=== PATIENT | female | born 1965 | race Caucasian/White ===

== ENCOUNTER → 2019-02-19 11:56 | Outpatient (CLI) | payer OTHER, SELFPAY ==
[2019-02-25 12:09] LABS: HPV Reflexed? NOT INDICATED
== END ==
PROVIDERS: Referring Provider Obstetrics & Gynecology; Visit Provider Obstetrics & Gynecology
DX: Z12.4 Encounter for screening for malignant neoplasm of cervix (principal)
CPT/HCPCS: 88175; G0145

== ENCOUNTER → 2024-12-31 | Outpatient (CLI) | payer OTHER, SELFPAY | END | disposition home or self-care (01) | LOC: CT 14:00 | PROVIDERS: Referring Provider Otolaryngology Otolaryngology/Facial Plastic Surgery; Visit Provider Otolaryngology Otolaryngology/Facial Plastic Surgery | DX: R22.0 Localized swelling, mass and lump, head (principal) | CPT/HCPCS: 70486 ==